=== PATIENT | female | born 1975 | race Caucasian/White ===

== ENCOUNTER 2016-12-02 08:46 | Outpatient (CLI) | payer BC ==
--- NOTE | 2016-12-02 09:33 | MMO ---
BILATERAL SCREENING MAMMOGRAM: DATE: 12/02/16 HISTORY: 41-year-old female for screening mammography. COMPARISON: 12/02/15, 11/04/14, 11/02/13. FINDINGS: Bilateral MLO and CC views of the breasts show heterogeneously dense breast parenchyma, which may lo wer the sensitivity of mammography. A benign-appearing calcification is seen in the right breast. Th ere is no evidence of suspicious mass, suspicious cluster of microcalcifications, or area of archite ctural distortion. Interpretation of this mammogram was performed with the assistance of computer-aided detection. IMPRESSION: BIRADS 2: Benign Finding(s) Annual screening mammography is recommended. POS: DESHAUN
== END 2016-12-02 08:47 | disposition home or self-care (01) ==
LOC: SCSMAMMO 08:46
PROVIDERS: ATTEND Obstetrics & Gynecology
DX: Z12.31 Encounter for screening mammogram for malignant neoplasm of breast (principal)
CPT/HCPCS: 77067; G0202

== ENCOUNTER 2017-12-07 13:38 | Outpatient (CLI) | payer BC ==
--- NOTE | 2017-12-07 15:55 | MMO ---
BILATERAL DIGITAL SCREENING MAMMOGRAMS: HISTORY: A 42-year-old female who presents for digital screening mammography. COMPARISON: 12/02/2016, 12/12/2015, 11/04/2014, 11/02/2013, 10/26/2012. This patient's mammogram is interpreted with the assistance of computer-aided detection. FINDINGS: The breasts are heterogeneously dense, which can obscure small masses. There are a few stable typically benign calcifications. Stable bilateral intramammary lymph nodes. IMPRESSION: BI-RADS category 2, benign findings. Continued routine screening. BIRADS 2: Benign Finding(s) Routine annual screening mammography (for women over age 40) POS: DESHAUN
== END 2017-12-07 13:39 | disposition home or self-care (01) ==
LOC: SCSMAMMO 13:38
PROVIDERS: ATTEND Obstetrics & Gynecology
DX: Z12.31 Encounter for screening mammogram for malignant neoplasm of breast (principal)
CPT/HCPCS: 77067